=== PATIENT | female | born 1940 | race Caucasian/White ===

== ENCOUNTER 2018-02-17 13:59 | Inpatient (IN) | payer OTHER ==
[~2018-02-17] VITALS: Ht 154.9 cm; Wt 50.9 kg
[2018-02-17] MEDS ORDERED: SODIUM CHLORIDE 0.9% 1,000 ML IVB ONE (15:23)
[2018-02-17 16:39] LABS: Alanine Aminotransferase 15 U/L (13-56); Albumin 2.3 g/dL (3.4-5.0); Alkaline Phosphatase 184 U/L (45-117); Anion Gap 9 (5-15); Aspartate Aminotransferase 20 U/L (15-37); BUN/Creatinine Ratio 33.3; Basophils # (auto) 0.1 uL; Bilirubin, Total 0.6 mg/dL (0.2-1.0); Blood Urea Nitrogen 21 mg/dL (7-18); Calcium 8.7 mg/dL (8.5-10.1); Carbon Dioxide 28 mmol/L (21-32); Chloride 105 mmol/L (98-107); Eosinophils # (auto) 0 uL; Eosinophils % (auto) 0.2 % (0.0-7.0); GFR African American 118 mL/min; GFR Non-African American 97 mL/min; Glucose 68 mg/dL (74-106); Magnesium 2.3 mg/dL (1.6-2.6); Potassium 3.3 mmol/L (3.5-5.1); Sodium 142 mmol/L (136-145); Total Protein 6.9 g/dL (6.4-8.2)
[2018-02-17 16:41] LABS: Basophils % (auto) 0.4 % (0.0-2.0); Hematocrit 19.5 % (36.0-46.0); Lymphocytes # (auto) 1.5 uL; Lymphocytes % (auto) 8.7 % (10.0-50.0); Mean Corpuscular Hemoglobin 17.3 pg (28.0-32.0); Mean Corpuscular Hgb Conc. 26.9 g/dL (32.0-36.0); Mean Corpuscular Volume 64.3 fL (80.0-100.0); Monocytes # (auto) 0.7 uL; Monocytes % (auto) 4.4 % (0.0-12.0); Neutrophils # (auto) 14.3 uL; Neutrophils % (auto) 86.3 % (37.0-80.0); Nucleated Red Blood Cells % 0.1 %; Platelet Count (auto) 436 10^3/uL (140-450); Red Blood Cells 3.04 10^6/uL (4.0-5.20); White Blood Cell 16.6 10^3/uL (4.4-10.8)
[2018-02-17 16:44] LABS: Hemoglobin 5.3 g/dL (12.2-16.2)
[2018-02-17 16:45] LABS: Red Cell Distribution Width 20.8 % (11.8-14.3)
[2018-02-17 16:50] LABS: Urine Bacteria MANY /hpf (None Seen); Urine Blood 2+ /uL (Negative); Urine Mucus FEW (None Seen); Urine Specific Gravity 1.019 (1.001-1.035); Urine WBC 1335 /hpf (0 - 5); Urine WBC Clumps PRESENT /hpf (None Seen)
[2018-02-17 17:01] LABS: Alcohol, Urine < 3.0 mg/dL (0-5); Amphetamine Screen, Urine NEGATIVE (NEGATIVE); Barbiturate Scree,Urine NEGATIVE (NEGATIVE); Benzodiazephine Screen, Urine NEGATIVE (NEGATIVE); Cannabinoid Screen, Urine NEGATIVE (NEGATIVE); Cocaine Screen, Urine NEGATIVE (NEGATIVE); Opiate Scree,Urine NEGATIVE (NEGATIVE); Phencyclidine Screen, Urine NEGATIVE (NEGATIVE)
[2018-02-17] MEDS ORDERED: POTASSIUM CHL 10% (20 MEQ/15ML) 15ml ORAL SOLN PO ONE (17:30)
[2018-02-17] MEDS ORDERED: cefTRIAXone 1GM/10ml IVPUSH 10 ML IV ONE ×2 (17:30→18:00)
[2018-02-17] MEDS ORDERED: SODIUM CHLORIDE 0.9% 1,000 ML IV ONE (17:45)
[2018-02-17] MEDS: SODIUM CHLORIDE 0.9% 1,000 ML IV SCH (17:58)
[2018-02-17] MEDS ORDERED: TEMAZEPAM 15 MG CAP PO PRN (18:00)
[2018-02-17] MEDS ORDERED: ACETAMINOPHEN 500 MG TAB PO PRN (18:00)
[2018-02-17] MEDS ORDERED: LACTULOSE 20Gm/30ML SOLN PO PRN (18:00)
[2018-02-17] MEDS ORDERED: LORazepam 0.5 MG TAB PO PRN (18:00)
[2018-02-17] MEDS ORDERED: PROMETHAZINE HCL 25 MG/ML 1ML IV PRN (18:00)
[2018-02-17] MEDS ORDERED: NITROGLYCERIN 0.4 MG SL TAB SL PRN (18:00)
[2018-02-17] MEDS ORDERED: HYDROcodone-ACET 5/325MG TAB PO PRN (18:00)
[2018-02-17] MEDS ORDERED: DEXTROSE (50%) 50ML SYRG IV PRN (18:00)
[2018-02-17] MEDS ORDERED: PANTOPRAZOLE 40 MG/10 ML VIAL IV ONE (18:00)
[2018-02-17] MEDS ORDERED: MORPHINE SULFATE 4 MG/ML SYR/VIAL IV PRN ×2 (18:00)
[2018-02-17 18:43] LABS: Hematocrit 21.4 % (36.0-46.0)
[2018-02-17 18:51] LABS: Hemoglobin 5.8 g/dL (12.2-16.2)
[2018-02-17 19:08] LABS: Amylase 17 U/L (25-115); Lipase 30 U/L (73-393)
[2018-02-17 19:10] LABS: Creatine Kinase IFCC 67 U/L (26-192)
[2018-02-17 19:12] LABS: Folate (Folic Acid) 11.12 ng/mL (5.38-24)
[2018-02-17 19:13] LABS: INR 1.1 (0.9-1.15)
[2018-02-17] MEDS: ACCU-CHEK COMFORT CURVE STRIP VI SCH ×2 (20:00→23:50)
[2018-02-17 20:52] VITALS: BP 152/26
[2018-02-17 21:07] VITALS: BP 160/50
[2018-02-17 22:47] VITALS: BP 145/91
[2018-02-17 23:06] VITALS: BP 137/61
[2018-02-17 23:21] VITALS: BP 137/61
[2018-02-17] MEDS ORDERED: ACETAMINOPHEN 650 mg PER 20 mL UD ONE (23:32)
[2018-02-17] MEDS ORDERED: ACETAMINOPHEN 650 mg PER 20 mL UD PO ONE (23:45)
[2018-02-18] VITALS (7 sets, daily range): BP systolic 113–144; BP diastolic 58–90
[2018-02-18] MEDS: SODIUM CHLORIDE 0.9% 1,000 ML IV SCH ×3 (04:02→23:58)
[2018-02-18] MEDS: ACCU-CHEK COMFORT CURVE STRIP VI SCH ×3 (04:07→12:00)
[2018-02-18 04:27] LABS: Hemoglobin 10.2 g/dL (12.2-16.2)
[2018-02-18 04:29] LABS: Hematocrit 33.2 % (36.0-46.0); Mean Corpuscular Hemoglobin 22.9 pg (28.0-32.0); Mean Corpuscular Hgb Conc. 30.5 g/dL (32.0-36.0); Mean Corpuscular Volume 74.9 fL (80.0-100.0); Platelet Count (auto) 269 10^3/uL (140-450); Red Blood Cells 4.44 10^6/uL (4.0-5.20); White Blood Cell 22.5 10^3/uL (4.4-10.8)
[2018-02-18 04:32] LABS: Red Cell Distribution Width 24.9 % (11.8-14.3)
[2018-02-18 04:58] LABS: Albumin 1.9 g/dL (3.4-5.0); BUN/Creatinine Ratio 26.5; Bilirubin, Total 0.9 mg/dL (0.2-1.0); Potassium 4.1 mmol/L (3.5-5.1); Total Protein 5.7 g/dL (6.4-8.2)
[2018-02-18 05:32] LABS: Basophils % (manual) 0 (0.0-2.0); Blast Cells 0; Eosinophils % (manual) 0 (0-7); Promyelocytes % 0; Reactive Lymphocytes 0
[2018-02-18 05:34] LABS: Band Neutrophils % (manual) 7; Lymphocytes % (manual) 10 (10.0-50.0); Metamyelocytes % 1; Monocytes % (manual) 4 (0-12); Myelocytes % 1
[2018-02-18] MEDS ORDERED: FUROSEMIDE 20 MG/2 ML VIAL IV ONE (07:30)
[2018-02-18] MEDS ORDERED: ENOXAPARIN SOD 40 MG/0.4 ML SYRINGE SC SCH (10:00)
[2018-02-18] MEDS: cefTRIAXone 1GM/10ml IVPUSH 10 ML IV SCH (10:15)
[2018-02-18] MEDS: PANTOPRAZOLE 40 MG/10 ML VIAL IV SCH (10:21)
[2018-02-18] MEDS ORDERED: THIAMINE INJ 100 MG, MULTIPLE VITAMIN 10 ML, FOLIC ACID 1 MG, MAGNESIUM SULF SDV 50% 8 ... IV SCH ×5 (12:00)
[2018-02-19 05:00] VITALS: BP 132/56
[2018-02-19 08:00] VITALS: BP 129/56
[2018-02-19 09:00] VITALS: BP 129/56
[2018-02-19] MEDS: SODIUM CHLORIDE 0.9% 1,000 ML IV SCH (09:30)
[2018-02-19] MEDS: PANTOPRAZOLE 40 MG/10 ML VIAL IV SCH (09:30)
[2018-02-19] MEDS ORDERED: metroNIDAZOLE 500MG/100ML 100 ML IV SCH (09:30)
[2018-02-19] MEDS: cefTRIAXone 1GM/10ml IVPUSH 10 ML IV SCH (09:30)
[2018-02-19 12:54] VITALS: BP 125/57
== END 2018-02-19 13:40 | disposition expired | DRG 871 ==
LOC: ER 13:59 → TELE 14:00 → TELE-WESTW 02-18 16:56 → WEST WING 02-19 09:09
PROVIDERS: ADMIT Internal Medicine; ATTEND Internal Medicine
PROC: 30233N1 Transfusion of Nonautologous Red Blood Cells into Peripheral Vein, Percutaneous Approach (ICD-10-PCS; principal; 2018-02-17)
DX: A41.9 Sepsis, unspecified organism (principal); R65.21 Severe sepsis with septic shock; K63.1 Perforation of intestine (nontraumatic); E43 Unspecified severe protein-calorie malnutrition; G93.41 Metabolic encephalopathy; A04.72 Enterocolitis due to Clostridium difficile, not specified as recurrent; C78.7 Secondary malignant neoplasm of liver and intrahepatic bile duct; G20 Parkinson's disease; C18.7 Malignant neoplasm of sigmoid colon; C34.91 Malignant neoplasm of unspecified part of right bronchus or lung; C34.92 Malignant neoplasm of unspecified part of left bronchus or lung; N39.0 Urinary tract infection, site not specified; R64 Cachexia; I31.3 Pericardial effusion (noninflammatory); Z66 Do not resuscitate; Z51.5 Encounter for palliative care; D64.9 Anemia, unspecified; I10 Essential (primary) hypertension; E87.6 Hypokalemia; F17.210 Nicotine dependence, cigarettes, uncomplicated; E16.2 Hypoglycemia, unspecified; K59.00 Constipation, unspecified; F41.9 Anxiety disorder, unspecified; G47.00 Insomnia, unspecified; Z60.2 Problems related to living alone; G25.0 Essential tremor; K63.89 Other specified diseases of intestine; Z53.20 Procedure and treatment not carried out because of patient's decision for unspecified reasons; Z82.49 Family history of ischemic heart disease and other diseases of the circulatory system; Z90.710 Acquired absence of both cervix and uterus; Z93.3 Colostomy status; Z68.21 Body mass index [BMI] 21.0-21.9, adult; Z88.0 Allergy status to penicillin
CPT/HCPCS: 36415; 51702; 70450; 71045; 71250; 74176; 80053; 80061; 80307; 81001; 82150; 82270; 82378; 82550; 82607; 82746; 82962; 83036; 83605; 83690; 83735; 83880; 84443; 84484; 85007; 85014; 85018; 85025; 85027; 85045; 85379; 85610; 85652; 85730; 86850; 86900; 86901; 86920; 87040; 87086; 87088; 87186; 87493; 93005; 93306; 93886; 94761; 96372; 96374; C9113; J3490